=== PATIENT | male | born 1950 | race Caucasian/White ===

== ENCOUNTER 2016-10-19 11:46 | Emergency (ER) | payer OTHER ==
[~2016-10-19] VITALS: Ht 180.3 cm; Wt 83.9 kg
[2016-10-19 12:01] VITALS: BP 138/84
--- NOTE | 2016-10-19 12:20 | ED GENERAL ADULT ---
History of Present Illness General Chief Complaint: Psychiatric Related Complaint Stated Complaint: SENT BY DR DOMINGUEZ CO2 POISONING? HALLUCINATIONS Source: patient, family Exam Limitations: no limitations Vital Signs & Intake/Output Vital Signs & Intake/Output Vital Signs Date Time Temp Pulse Resp B/P Pulse O2 O2 Flow FiO2 Ox Delivery Rate 10/19 1201 98.4 72 18 138/84 99 Room Air Allergies Coded Allergies: No Known Drug Allergies (10/19/16) Uncoded Allergies: Allergy Other NKA Med Allergies NKDA Triage Note: C/O HALLUCINATING X 3 DAYS, FEELING DEPRESSED NOT SLEPING X 1 WEEK. DENIES SI OR HI. WITH PT. PMH: YASIR Triage Nurses Notes Reviewed? yes Onset: Gradual Duration: day(s): (3) Timing: no prior history Injury Environment: home Severity: moderate Severity Numbers: 8 No Modifying Factors: none HPI: Patient is a 66-year-old male with history of Parkinson disease presenting to the emergency department with family with chief complaining of hallucinations 3 days. Patient reports that he been under a lot of stress in the past several days, decreased sleep and has been installing a hot water heater in their basement. He is unsure of any carbon monoxide exposure. He called his primary care physician who suggested him coming to the emergency department for evaluation of hallucinations. He reports that he sees people at home, does not see anything currently here. He denies any voices. Denies any suicidal or homicidal ideation. He called his psychiatrist who also told him to come in for evaluation. Denies any recent changes in medication dosing. He does report decreased sleep. Denies any nausea or vomiting fevers or chills chest pain or shortness of breath. No on else in the family has been exposed to carbon monoxide. Note also symptoms. Patient denying any lethargy, change in skin color, headaches. Denies alcohol or polysubstance abuse. (MARLEN SIEGEL) Past History Travel History Traveled to [place] past 21 day No Medical History Any Pertinent Medical History? see below for history Neurological: Parkinson's disease Psychiatric: depression Surgical History Surgical History: non-contributory Psychosocial History What is your primary language Pakistani Tobacco Use: Never used ETOH Use: denies use Family History Hx Contributory? No (MARLEN SIEGEL) Review of Systems Review of Systems Constitutional: Reports: no symptoms. Comments Review of systems: See HPI, All other systems negative. Constitutional, no chills fever or weight loss HEENT: No visual changes no sore throat no congestion Cardiovascular: No chest pain ,palpitation , orthopnea or ankle swelling Skin, no jaundice no rashes Respiratory: No dyspnea cough sputum or hemoptysis GI: No nausea no vomiting : No dysuria No hematuria Muscle skeletal: no back pain, no neck pain, Neurologic: No numbness no headaches Psych: Positive stress, anxiety Heme/endocrine: No bruising no bleeding no polyuria or polydipsia Immunology: No splenectomy or history of AIDS (MARLEN SIEGEL) Physical Exam Physical Exam General Appearance: well developed/nourished, no apparent distress, alert, awake , comfortable Comments: Well-developed well-nourished person in no acute distress HEENT: Pupils equally round and reactive to light and accommodation. Nose is atraumatic. Neck: Normal inspection Cardiovascular: Regular rate and rhythms no murmurs rubs or gallops, normal JVP Respiratory: Chest nontender. No respiratory distress.breath sounds clear to auscultation bilaterally Extremity: No edema Neuro: Alert oriented x3, motor sensory normal, cranial nerves II through XII grossly intact. Skin: No appreciable rash on exposed skin, skin is warm and dry. Psych: Mood and affect is normal, memory and judgment is normal. Core Measures ACS in differential dx? No CVA/TIA Diagnosis: No Severe Sepsis Present: No Septic Shock Present: No (MARLEN SIEGEL) Progress Differential Diagnoses I considered the following diagnoses in my evaluation of the patient: Polysubstance abuse, major depressive disorder, bipolar, CO exposure. Plan of Care: Orders Procedure Date/time Status ARTERIAL BLOOD GAS (GEN) 10/19 1252 Complete CARBON MONOXIDE LEVEL (GEN) 10/19 1220 Complete URINE DRUG SCREEN FOR ER ONLY 10/19 1218 Active URINALYSIS 10/19 1218 Active ETHANOL 10/19 1218 Complete COMPREHENSIVE METABOLIC PANEL 10/19 1218 Complete CBC WITHOUT DIFFERENTIAL 10/19 1218 Complete Laboratory Tests 10/19/16 1300: pH 7.43, pCO2 36, pO2 97, HCO3 24, ABG O2 Sat (Measured) 97.0, P-50 (Temp Corrected) N, Carboxyhemoglobin 0.2 L, O2 Concentration % .21, O2 Delivery Method RA, Phlebotomy Draw Site LEFT BRACHIAL 10/19/16 1219: Anion Gap 10, Estimated GFR > 60, BUN/Creatinine Ratio 21.1, Glucose 89, Calcium 9.2, Total Bilirubin 1.0, AST 30, ALT 22, Alkaline Phosphatase 114, Total Protein 6.6, Albumin 4.0, Globulin 2.6, Albumin/Globulin Ratio 1.5, CBC w Diff NO MAN DIFF REQ, RBC 4.94, MCV 83.5, MCH 28.3, RDW 13.2, MPV 8.7, Gran % 55.4, Lymphocytes % 32.8, Monocytes % 9.3, Eosinophils % 1.8, Basophils % 0.7, Absolute Granulocytes 3.1, Absolute Lymphocytes 1.9, Absolute Monocytes 0.5, Absolute Eosinophils 0.1, Absolute Basophils 0, PUBS MCHC 33.9, Serum Alcohol < 10.0 Initial ED EKG: none Comments: Patient is alert and oriented 3, well-appearing. Does not appear overly anxious. We will obtain CBC, CMP, drug screen, carboxyhemoglobin. Patient does not want to meet with crisis at this time as he reports he has close follow-up. Denies any suicidal or homicidal ideation. He is with his currently. Patient informed of all lab work results. They will follow up closely with the psychiatrist and his primary care physician. Patient was informed that there are other things that can cause hallucinations besides carbon monoxide poisoning such as progression of Parkinson or other process. Patient does not want to stay for evaluation. Patient is alert and oriented 3, no suicidal or homicidal ideation. Patient signed AMA form. He will leave with his . He will follow up with his primary care physician tomorrow. (MARLEN SIEGEL) Departure Departure Time of Disposition: 1326 Disposition: LEFT AGAINST MEDICAL ADVICE Condition: Stable Clinical Impression Primary Impression: Hallucinations Referrals: FLOYD GRANT,CHRIS Jackson (PCP/Family) Additional Instructions: Follow-up with your primary care physician and your neurologist. This could be due to your medication increase over the past couple weeks. It could also be a progression of the Parkinson's disease. Return for any worsening symptoms or concerns. Your gamma cavities appear blood work. Departure Forms: Customer Survey General Discharge Information (MARLEN SIEGEL) PA/PASTE MIXER Co-Sign Statement Statement: ED Attending supervision documentation- x I saw and evaluated the patient. I have also reviewed all the pertinent lab results and diagnostic results. I agree with the findings and the plan of care as documented in the PA's/PASTE MIXER's documentation. [] I have reviewed the ED Record and agree with the PA's/PASTE MIXER's documentation. [] Additions or exceptions (if any) to the PAs/PASTE MIXER's note and plan are summarized below: [] (WAYNE GRANT,JAMIR) Critical Care Note Critical Care Note Critical Care Time: non-applicable (MARLEN SIEGEL)
[2016-10-19 12:30] LABS: ABSOLUTE BASOPHIL COUNT 0 /CUMM (0.0-0.2); ABSOLUTE EOSINOPHIL COUNT 0.1 /CUMM (0.0-0.7); ABSOLUTE GRANULOCYTE CT 3.1 /CUMM (1.4-6.5); ABSOLUTE LYMPH COUNT 1.9 /CUMM (1.2-3.4); ABSOLUTE MONOCYTE COUNT 0.5 /CUMM (0.10-0.60); BASOPHIL % 0.7 % (0.0-2.0); EOSINOPHIL % 1.8 % (0-5); GRANULOCYTE % 55.4 % (42.2-75.2); HEMATOCRIT 41.2 % (42-52); MEAN CORPUSCULAR HGB 28.3 PG (27.0-31.0); MEAN CORPUSCULAR HGB CONC 33.9 G/DL (33.0-37.0); MEAN CORPUSCULAR VOLUME 83.5 FL (80.0-94.0); MEAN PLATELET VOLUME 8.7 FL (7.4-10.4); PLATELET COUNT 214 /CUMM (130-400); RBC DISTRIBUTION WIDTH 13.2 % (11.5-14.5); RED BLOOD CELL CT 4.94 /CUMM (4.70-6.10); WHITE BLOOD CELL COUNT 5.7 /CUMM (4.8-10.8)
== END 2016-10-19 13:30 | disposition left against medical advice (07) ==
LOC: ERH
PROVIDERS: Emergency Medicine
DX: R44.3 Hallucinations, unspecified (principal); Z77.098 Contact with and (suspected) exposure to other hazardous, chiefly nonmedicinal, chemicals
CPT/HCPCS: 80307; G0480